=== PATIENT | male | born 1990 | race Caucasian/White ===

== ENCOUNTER 2019-11-06 17:44 | Emergency (ER) | payer SELFPAY ==
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
[2019-11-06 22:13] VITALS: BP 134/101; TEMP 98.9; O2SAT 100
== END 2019-11-06 18:32 | disposition home or self-care (01) ==
LOC: ER 17:44
DX: T25.222A Burn of second degree of left foot, initial encounter (principal); T25.221A Burn of second degree of right foot, initial encounter
CPT/HCPCS: 99283

== ENCOUNTER 2023-10-07 17:15 | Emergency (ER) | payer OTHER, SELFPAY ==
--- OUTSIDE RECORDS SUMMARY | 2023-10-07 17:18 | XMS REPORT | Continuity of Care Document ---
Author Name Unknown Address [address] [place] [address] [facility] Address [address] [place] [address] Care Team Providers Care Dent Remover Name Role Phone SCHAUBROECK_L Attending Clinician Unavailable SCHAUBROECK_L Admitting Clinician Unavailable Payers Payer Name Policy Type Policy Number Effective Date Expirati on Date Source [employer] [id number] Encounters Start Date/Time End Date/Time Encounter Type Admission Type Attending Clinicians Care Facility Care Department Encounter ID Source 2020-07-08 10:10:00 2020-07-08 10:10:00 Outpatient [facility]K [facility] [id number] [facility] 2020-07-08 10:10:00 2020-07-08 10:10:00 Outpatient [facility] [id number] [facility] 2020-07-07 09:38:00 2020-07-07 09:38:00 Outpatient [facility]OECK [facility] [id number] [facility]
--- NOTE | 2023-10-07 18:29 | RAD REPORT ---
EXAM DESCRIPTION: RAD - Hand Right 3 View - 10/07/2023 6:19 pm CLINICAL HISTORY: PAIN COMPARISON: No comparisons FINDINGS/IMPRESSION: No acute fracture. No malalignment. No significant focal degenerative changes.
[2023-10-07] MEDS ORDERED: IBUPROFEN 400 MG TAB ONE (18:53)
[2023-10-07] MEDS ORDERED: HYDROCODONE/APAP 5/325 MG TAB ONE (18:54)
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
[2023-10-07 21:47] VITALS: BP 128/70; TEMP 97.5; O2SAT 99
== END 2023-10-07 19:27 | disposition home or self-care (01) ==
LOC: ER 17:15
DX: M79.641 Pain in right hand (principal)
CPT/HCPCS: 99283